=== PATIENT | male | born 1960 | race Caucasian/White ===

== ENCOUNTER 2018-09-21 07:05 | Day surgery (SDC) | payer BC ==
[~2018-09-21] VITALS: Ht 188 cm; Wt 81.7 kg
--- NOTE | ~2018-09-21 | OR ---
[facility] [address] [place], [place] [address] Draft DATE OF OPERATION: 09/21/2018 SURGEON: Carmen Maurice MD PREOPERATIVE DIAGNOSES: 1. Bladder mass. 2. History of bladder cancer, with evidence of tumor recurrence on recent cystoscopy. POSTOPERATIVE DIAGNOSES: 1. Bladder mass. 2. History of bladder cancer, with evidence of tumor recurrence on recent cystoscopy. NAMES OF PROCEDURES: 1. Urethral dilation using Jagjit sounds from 16-Paraguayan to 28-Paraguayan. 2. Transurethral resection of bladder tumor-small. 3. Intravesical instillation of mitomycin. ANESTHESIA: Spinal. ESTIMATED BLOOD LOSS: Minimal. COMPLICATIONS: None. SPECIMENS: Fragments of bladder tumor sent to pathology for evaluation. DRAINS: A 20-Paraguayan two way Mendez catheter, capped and taped to the patient's abdomen. INDICATIONS FOR PROCEDURE: Mr. Sunshine is a very pleasant 58-year-old gentleman with a history of low-grade bladder cancer, initially diagnosed in 2000. He recently presented to me for evaluation of intermittent bouts of gross hematuria, along with recurrent UTIs. A diagnostic cystoscopy was performed, which revealed moderate trilobar BPH, along with 1 cm plaque like papillary mass located over the area of previous resection on the right lateral wall of the bladder. I had a long discussion regarding the patient's obvious evidence of tumor recurrence and that he will now need to return to q.3 months surveillance PATIENT NAME: YAMILET SUNSHINE OPERATIVE REPORT DATE OF : 56 REPORT #: [id number] PHYSICIAN: CARMEN MAURICE MD PCP: CHEL BARRY MD REPORT IS CONFIDENTIAL AND NOT TO BE RELEASED WITHOUT AUTHORIZATION [facility] [address], [place] [address] Draft cystoscopies for at least one year. I also highly recommended at the time they undergo a transurethral resection of the prostate for definitive management of his BPH with lower urinary tract symptoms. The patient has agreed to undergo TURBT for resection of his bladder tumor, however, he is currently not interested in undergoing transurethral resection of the prostate. He would prefer to continue his current medical management in the form of Flomax p.o. b.i.d. as he says this medicine has resulted in improvement in his lower urinary tract symptoms. FINDINGS: 1. On cystoscopy, there is a diffuse plaque like papillary mass located over the previous resection scar in the superior aspect of the right lateral wall of the bladder. A good deal of the tumor does spread towards the dome as well. There was no obvious evidence of any other tumors on the remainder of the cystoscopy. Bilateral ureteral orifices are in their normal anatomic location and they are not involved with tumor. 2. Ureteroscopy reveals moderate trilobar hypertrophy with presence of a medium median bar. There is no evidence of any urethral stricture or stenosis. 3. The plaque-like tumor was resected with a bipolar electrocautery with only a minor amount of difficulty due to the presence of the tumor on the dome as well. I resected all visible papillary tumor in this area. Then I used a bipolar button to cauterize the tumor bed. Approximately 40 mg in 25 mL of mitomycin was instilled into the patient's bladder at the end of the procedure. He will turn to 20 minutes for a total of 80 minutes to complete the mitomycin chemotherapy. DESCRIPTION OF PROCEDURE: After informed consent was obtained, the patient was taken back to the operating room. He was transferred from the [facility] to the operating room table, where spinal anesthesia was induced. He was then placed in the dorsal lithotomy position and his genitalia was prepped and draped in a standard sterile fashion. His urethra was then dilated using Jagjit sounds. Please see above findings. Using a 30-degree lens on a 26-Paraguayan introducer, a rigid cystoscope was inserted through the urethra and into his bladder under direct visualization. Panendoscopic views of the bladder were then obtained. Please see above findings. The visual obturator was then switched out for the resectoscope and then I began resecting the papillary mass located on the right lateral wall of the bladder. I resected all visible tissue involved with tumor. I did require the assistance of a nurse to press down on the dome of the bladder to help me reach the areas in the dome for adequate resection. Once the entire tumor was resected I then used a bipolar electrode to cauterize the tumor bed. This was performed without difficulty. The patient's bladder was then irrigated using a Nicole syringe and all the bladder tumor fragments were placed in a specimen cup to be sent to pathology for evaluation. I then inserted a 20-Paraguayan 2-way Mendez catheter into the patient's bladder and then allowed it to drain via gravity. I then instilled the mitomycin chemotherapy PATIENT NAME: YAMILET SUNSHINE OPERATIVE REPORT DATE OF : 56 REPORT #: [id number] PHYSICIAN: CARMEN MAURICE MD PCP: CHEL BARRY MD REPORT IS CONFIDENTIAL AND NOT TO BE RELEASED WITHOUT AUTHORIZATION [facility] [address] [place] [id number] Draft through the catheter into the patient's bladder. I capped the Mendez and then secured the catheter to the patient's abdomen. The procedure was then terminated. The patient tolerated the procedure well without any complication. He will now be transferred to the postanesthesia care unit in stable condition. DISPOSITION: The patient will be discharged to home with a Mendez catheter in place later today. He will remove his indwelling Mendez catheter using a provided syringe in approximately 5 days. I discussed the details of today's procedure with the patient's and answered all of her questions. He will be sent home today with Augmentin 875 p.o. b.i.d. for seven days, along with oxybutynin as needed for spasms and Percocet 5/325 dispense #20 as needed for pain. He will be scheduled to return to clinic in five weeks to discuss his pathology results. MD CLEMENTINA Robin/ROBERT /[id number] Copies: ~ PATIENT NAME: YAMILET SUNSHINE OPERATIVE REPORT DATE OF : 56 REPORT #: [id number] PHYSICIAN: CARMEN MAURICE MD PCP: CHEL BARRY MD REPORT IS CONFIDENTIAL AND NOT TO BE RELEASED WITHOUT AUTHORIZATION
[~2018-09-21 07:05] MED LIST: BENZONATATE200 MG PO; TAMSULOSIN HCL0.4 MG PO
--- NOTE | 2018-09-21 10:08 | NUR ---
09/21/18 Estefani Coburn 1001 PT TO PACU AWAKE AND ALERT DENIES PAIN AND NAUSEA, SPINAL AT T-10 BREATH REG REQUIRE NO 02 TO MAINTAIN STAT
--- NOTE | 2018-09-21 10:42 | NUR ---
PT ARRIVES TO DS RM 4 FROM PACU AWAKE AND ALERT. PT ON RA, RESP EVEN AND UNLABORED. PT DENIES ANY N/V OR PAIN. PT SUPINE ON ARRIVAL AND POSITIONED TO RIGHT SIDE AT 0937. PT SPOUSE AT BEDSIDE. PT PROVIDED ICED WATER AND CRACKERS. WILL MOVE PT TO PRONE POSITION AT 0957. CALL LIGHT WITHIN REACH.
--- NOTE | 2018-09-21 11:42 | NUR ---
PT REPOSITIONED TO SUPINE WITH HOB AT 90 DEGREES. LUNA CATHETER EMPTIED OF 200 MLS PINK FLUID. PT OFFERED LEG BAG FOR LUNA CATHETER AND PT REQUESTS TO HAVE LUNA CAPPED. PT PROVIDED COFFEE AND APPLESAUCE. PT IS ABLE TO MOVE LEFT LEG COMPLETELY, BUT UNABLE TO MOVE RIGHT TOES. PT DENIES PAIN OR N/V. CALL LIGHT WITHIN REACH.
--- NOTE | 2018-09-21 12:55 | NUR ---
DR. MAURICE IN PT ROOM DISCUSSING NEED FOR CATHETER TO DRAIN TO GRAVITY. LUNA CATHETER EMPTIED OF 75MLS CONCENTRATED YELLOW URINE. LEG BAG APPLIED AND PT EDUCATED ON USE. PT ALSO PROVIDED GRAVITY BAG FOR WHEN AT HOME AND EVENINGS. PT SITS AT SIDE OF BED, DENIES DIZZINESS OR NAUSEA. PT UP AMBULATING AROUND UNIT, STEADY GAIT. PT BACK IN ROOM AND GETTING DRESSING WITH HELP OF SPOUSE.
--- NOTE | 2018-09-21 13:30 | NUR ---
PT ALERT, ORIENTED AND SUPPORTED BY HIS ROMEO. BOTH SEEM INFORMED, HAD FEW QUESTIONS. PT REQUESTED PRAYER. WILL FOLLOW NEEDED
--- NOTE | 2018-09-21 14:32 | NUR ---
[id number]: DC INSTRUCTIONS PRESENTED TO PT AND SPOUSE, ALL QUESTIONS ANSWERED. SCRIPT GIVEN TO PT. TWO 20 MLS SYRINGES AND LUNA GRAVITY BAG GIVEN TO PT. PT REQUESTS TO AMBULATE FROM DS RM 4 TO CAR AT ENTRANCE OF HOSPITAL. PT GAIT STEADY.
== END 2018-09-21 13:15 | disposition home or self-care (01) ==
LOC: OPS 07:05 → DS 07:05 → OPS 08:45 → DS 08:45 → OPS 13:15
PROVIDERS: Urology
PROC: 0TBB8ZZ Excision of Bladder, Via Natural or Artificial Opening Endoscopic (ICD-10-PCS; principal; 2018-09-21 08:45)
DX: C67.2 Malignant neoplasm of lateral wall of bladder (principal); N39.0 Urinary tract infection, site not specified; Z88.8 Allergy status to other drugs, medicaments and biological substances; Z79.899 Other long term (current) drug therapy; Z87.891 Personal history of nicotine dependence
CPT/HCPCS: 00910; 51702; J0696; J1100; J2250; J2405; J3010; J7120; J9280

== ENCOUNTER 2018-11-30 05:45 | Day surgery (SDC) | payer BC ==
[~2018-11-30] VITALS: Ht 188 cm; Wt 79.4 kg
--- NOTE | ~2018-11-30 | OR ---
[facility] [address] [place], [place] [address] Draft DATE OF OPERATION: 11/30/2018 SURGEON: Carmen Maurice MD PREOPERATIVE DIAGNOSES: 1. High-grade bladder cancer. 2. Possible detrusor muscle involvement based on recent pathology from initial tumor resection. POSTOPERATIVE DIAGNOSES: 1. High-grade bladder cancer. 2. Possible detrusor muscle involvement based on recent pathology from initial tumor resection. 3. 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 NAMES OF PROCEDURES: 1. Diagnostic cystoscopy. 2. Transurethral resection of bladder tumor-small. 3. Intravesical instillation of mitomycin, 40 mg in 20 mL. ANESTHESIA: Spinal. ESTIMATED BLOOD LOSS: Minimal. COMPLICATIONS: None. SPECIMENS: Fragments of the previously resected tumor base were sent to pathology for evaluation. DRAINS: A 22-Kuwaiti two-way Mendez catheter, capped and taped to the patient's belly. INDICATIONS FOR PROCEDURE: Mr. Sunshine is a very pleasant 58-year-old gentleman with a longstanding history of bladder cancer, initially diagnosed as low-grade urothelial carcinoma around 2000. He had undergone multiple cystoscopies and at one point in time was considered clear of his disease. He recently presented to me with intermittent bouts of gross hematuria and PATIENT NAME: YAMILET SUNSHINE OPERATIVE REPORT DATE OF : 56 REPORT #: [id number] PHYSICIAN: CARMEN MAURICE MD PCP: CHEL BARRY MD REPORT IS CONFIDENTIAL AND NOT TO BE RELEASED WITHOUT AUTHORIZATION [facility] [address] [place] [place] [address] Draft underwent a diagnostic cystoscopy, which revealed recurrence of his disease. The mass was approximately 1 cm in size and papillary in appearance, located at the junction of the dome and right lateral wall of the bladder. He underwent initial TURBT approximately six or seven weeks ago without complication. The pathology at that time did reveal high-grade disease with questionable involvement of the detrusor muscle; however, the pathologist could not be sure based on tangential cutting of the specimen. The patient presents today to undergo re-staging TURBT. OPERATIVE FINDINGS: 1. On cystoscopy, there was an approximately 1.5 cm area of previously resected tumor at the junction of the right lateral wall and dome of the bladder. I see no obvious evidence of regrowth of tumor. This area appears to be healing nicely with some erythema at the edges, but otherwise within normal limits given his recent resection. There were no other suspicious lesions or erythema in any other part of the bladder. Bilateral ureteral orifices are in their normal anatomic location effluxing clear urine. 2. The 1.5 cm base of the previously resected tumor was resected down to the level of the perivesical fat in some areas. I did my best to get as deep of resection as possible given the ambiguity of the patient's most recent pathology report. I was able to resect these areas without any obvious perforation of the bladder. 3. The tumor base was then cauterized thoroughly using a bipolar button. The tissue fragments were then collected via the cystoscope and sent to the lab for pathological evaluation. 4. A 22-Kuwaiti catheter was inserted into the patient's bladder. The patient's bladder was then filled with 40 mg in 20 mL of mitomycin via the indwelling catheter. The catheter was then capped and then secured to his abdomen. DESCRIPTION OF PROCEDURE: After informed consent was obtained, the patient was taken back to the operating room. He was transferred from the [facility] to the operating room table, where spinal anesthesia was induced. He was placed in the dorsal lithotomy position and his genitalia prepped and draped in a standard sterile fashion. The patient's urethra was then dilated from 18-Kuwaiti to 28-Kuwaiti with some difficulty. I did notice there was an area of mild stenosis in the pendulous urethra; however, I was able to dilate this using [place] sounds with only a mild amount of difficulty. After dilation of the urethra using [place] sounds, I was able to pass a 26-Kuwaiti sheath using the visual obturator into the patient's bladder. I then performed a diagnostic cystoscopy. Please see above findings. I removed the visual obturator and inserted the resectoscope. I then began resecting the base of the previous bladder tumor. This was performed using a 24-Kuwaiti bipolar loop without difficulty. Once I was satisfied with all the specimen that I had obtained, I irrigated these chips from the patient's bladder using the cystoscope. I then reinserted the resectoscope and cauterized the base of the previous bladder tumor using a bipolar button. This was performed without difficulty. Once I was satisfied PATIENT NAME: YAMILET SUNSHINE OPERATIVE REPORT DATE OF : 56 REPORT #: [id number] PHYSICIAN: CARMEN MAURICE MD PCP: CHEL BARRY MD REPORT IS CONFIDENTIAL AND NOT TO BE RELEASED WITHOUT AUTHORIZATION [address] [address] Draft that hemostasis had been achieved and was maintained without any risk of rebleed, I removed the resectoscope and irrigated the patient's bladder thoroughly using a Nicole syringe. A 22-Kuwaiti Mendez catheter was inserted into the patient's bladder with the help of a guidewire. I then instilled 40 mg in 20 mL of mitomycin chemotherapy into the patient's bladder. The tube was then capped and then attached to the patient's abdomen. The procedure was then terminated. The patient tolerated the procedure well without any complication. He will now be transferred to the postanesthesia care unit in stable condition. DISPOSITION: I did discuss the details of today's procedure with both the patient and his and answered all of his questions. He will be sent home today with his Mendez catheter to gravity drainage. I did say that it would be okay for him to cap his catheter during waking hours and empty his catheter on a strict q.4 hour schedule if need be. He was given a syringe today to remove his own catheter this on postprocedure day #3. He has done this before, so he understands how to do this. He will be scheduled to return to clinic in around six weeks for urine check and to begin scheduling his BCG induction treatment. He will be sent home today with oral antibiotics and suppositories as needed for bladder spasms. MD CLEMENTINA Robin/ROBERT /[id number] Copies: ~ PATIENT NAME: YAMILET SUNSHINE OPERATIVE REPORT DATE OF : 56 REPORT #: [id number] PHYSICIAN: CARMEN MAURICE MD PCP: CHEL BARRY MD REPORT IS CONFIDENTIAL AND NOT TO BE RELEASED WITHOUT AUTHORIZATION
--- NOTE | 2018-11-30 08:53 | NUR ---
11/30/18 0853 Day Juan 0838 PT ARRIVED IN PACU AWAKE WITH NO C/O'S. CATHETER PLUGGED FROM SURGERY. 0842 PT LAYING FLAT AND 20 MINUTES ON BACK STARTED. OXYGEN REMOVED. SATS 96% ON RA. 0845 PT TALKING WITH AND ALL QUESTIONS ANSWERED.
--- NOTE | 2018-11-30 09:20 | NUR ---
PT ARRIVES TO DS RM 4 FROM PACU AWAKE, A&O X3. PT RESP EVEN AND UNLABORED, SATS ABOVE 94% ON RA. PT DENIES PAIN, RATES 2/10 AND COMFORTABLE. PT DENIES NAUSEA. PT IS ON LEFT SIDE OF MITOMYCIN ROTATIONS, PT TO MOVE POSITION AT 0922. PT SPOUSE AT BEDSIDE, CALL LIGHT WITHIN REACH. PT HAS GLASSES IN PLACE.
--- NOTE | 2018-11-30 10:17 | NUR ---
[id number]: PT ROTATES FROM LEFT SIDE TO STOMACH. [id number]: PT ROTATES FROM STOMACH TO RIGHT SIDE. 1002: PT SITS SUPINE, HOB 90 DEGREES. CATHETER UNTAPED FROM STOMACH AND EMPTIED OF APPORXIMATELY 100 MLS DARK TEA COLORED URINE. LUNA BAG PLACED TO DRAIN TO GRAVITY. SCANT AMOUNT OF BLOOD NEAR MEATUS WITH DRAINING CATHETER. PT TOLERATES WELL. PROCEDURE COMPLETED WITH PROPER CHEMO PPE IN PLACE AND DISPOSED OF IN YELLOW CHEMO CONTAINER IN PT RM. CALL LIGHT WITHIN REACH, SPOUSE AT BEDSIDE.
[2018-11-30] MEDS ORDERED: LEVAQUIN500 MG PO (10:29)
--- NOTE | 2018-11-30 10:33 | NUR ---
PT PROVIDED COFFEE PER REQUEST AND DIETARY CALLED FOR YOUGURT.
--- NOTE | 2018-11-30 11:55 | NUR ---
[id number]: PT LUNA BAG EMPTIED OF 125 MLS PINK URINE. GRAVITY BAG CHANGED TO LEG BAG PER PT REQUEST. PT SPINAL RESOLVED AT THIS TIME. PT AMBULATES AROUND DS UNIT WITH RN ASSIST WITH STEADY GAIT AND STATES, "I FEEL FINE." PT BACK TO RM AND DRESSES SELF WITH SPOUSE IN RM. DC INSTRUCTIONS GIVEN IN PRESENCE OF PT AND SPOUSE, ALL QUESTIONS ADDRESSED. PT DC'S AMBULATORY WITH SPOUSE AND SILAS DE TO PERSONAL VEHICLE AT HOSPITAL ENTRANCE.
--- NOTE | 2018-11-30 13:47 | NUR ---
PT ALERT, ORIENTED AND SUPPORTED BY ROMEO. SHE WILL REMAIN IN DURING SURGERY TO WORK ON COMPUTER. PT HAS HAD SIMILIAR PROCEDURE, FEW QUESTIONS. APPLIED RESEARCHER IN-EXTENDED BLESSING. WILL FOLLOW NEEDED
== END 2018-11-30 11:50 | disposition home or self-care (01) ==
LOC: DS 05:45 → OPS 05:45 → DS 06:45 → OPS 11:50
PROVIDERS: Urology
PROC: 0TBB8ZZ Excision of Bladder, Via Natural or Artificial Opening Endoscopic (ICD-10-PCS; principal; 2018-11-30 06:45)
DX: N30.20 Other chronic cystitis without hematuria (principal); N32.89 Other specified disorders of bladder; N40.0 Benign prostatic hyperplasia without lower urinary tract symptoms; M47.814 Spondylosis without myelopathy or radiculopathy, thoracic region; F12.90 Cannabis use, unspecified, uncomplicated; N35.919 Unspecified urethral stricture, male, unspecified site; Z88.8 Allergy status to other drugs, medicaments and biological substances; Z79.899 Other long term (current) drug therapy; Z87.891 Personal history of nicotine dependence
CPT/HCPCS: 00912; J0461; J0696; J1100; J1885; J2250; J2405; J2704; J2765; J3010; J7120; J9280

== ENCOUNTER 2020-11-13 09:25 | Day surgery (SDC) | payer BC ==
[~2020-11-13] VITALS: Ht 188 cm; Wt 84.1 kg
[~2020-11-13 09:25] MED LIST changes: +DESONIDE15 G1 TOP; +LEVAQUIN500 MG PO; +MULTIPLE VITAM1 EAC2 PO
[2020-11-13] MEDS ORDERED: OXYCODONE HCL5 MG PO (14:21)
[2020-11-13] MEDS ORDERED: LEVOFLOXACIN500 MG PO (14:21)
[2020-11-13] MEDS ORDERED: PYRIDIUM200 MG PO (14:22)
--- NOTE | 2020-11-20 08:48 | OR ---
[facility] [address] [place], [place] [address] Signed DATE OF OPERATION: 11/13/2020 SURGEON: Carmen Maurice MD PREOPERATIVE DIAGNOSIS: History of high-grade superficial bladder cancer with multiple recurrences. POSTOPERATIVE DIAGNOSIS: History of high-grade superficial bladder cancer with multiple recurrences. NAME OF PROCEDURE: Diagnostic cystoscopy with bladder biopsy. ANESTHESIA: General. ESTIMATED BLOOD LOSS: Minimal. COMPLICATIONS: None. SPECIMENS: Multiple bites of bladder lesion sent to pathology for both acid-fast staining and pathological evaluation. DRAINS: None. COMPLICATIONS: None. INDICATIONS FOR PROCEDURE: Mr. Nash is a very pleasant 60-year-old gentleman, who is well known to me. He has a longstanding history of bladder cancer that was initially diagnosed in the early 1999s and he has more recently been treated for multiple recurrences. His disease began as low-grade but has since progressed to high-grade disease. TURBT in the recent past revealed no evidence of detrusor muscle invasion and so the patient has been undergoing BCG therapy. He underwent induction therapy followed by maintenance therapy a few months ago. The 2nd round of BCG was very difficult for him to tolerate and resulted in Electronically Signed By: CARMEN MAURICE MD 11/20/20 0848 PATIENT NAME: YAMILET NASH OPERATIVE REPORT DATE OF : 56 REPORT #: [id number] PHYSICIAN: CARMEN MAURICE MD PCP: CHEL BARRY MD REPORT IS CONFIDENTIAL AND NOT TO BE RELEASED WITHOUT AUTHORIZATION [facility] [address] [place], [place] [address] Signed multiple side effects including dysuria and fevers and chills. Recent surveillance cystoscopy revealed an erythematous lesion measuring around 2 cm on the dome of the bladder. He presents today to undergo cystoscopy with bladder biopsy to evaluate for possible recurrence of his disease versus BCG granuloma. OPERATIVE FINDINGS: 1. On cystoscopy, he has diffuse grade 4 bladder wall trabeculation, along with a mostly pale bladder wall mucosa. There is a 2 cm quarter-sized well-circumscribed erythematous lesion on the dome of the bladder near the junction of the right lateral wall. This lesion was biopsied multiple times using cold cup forceps. The biopsied area was then cauterized using a Bugbee monopolar electrocautery. 2. Ureteroscopy again revealed prostate enlargement with lateral lobe hypertrophy as well as a small median lobe. There was no significant hemorrhage from the prostatic urethra during today's procedure. 3. A digital rectal examination was performed, which revealed a 40 g prostate that is soft and smooth and symmetric with no focal nodules. DESCRIPTION OF PROCEDURE: After informed consent was obtained, the patient was taken back to the operating room. He was transferred from the [facility] to the operating room table, where general anesthesia was induced. He was placed in dorsal lithotomy position and his genitalia prepped and draped in a standard sterile fashion. Using a 30-degree lens on a 22.5-Korean introducer, rigid cystoscope was inserted through his urethra and into his bladder under direct visualization. Panendoscopic views of the bladder were then obtained. Please see above findings. I turned my attention to the 2 cm lesion located on the dome of the bladder. A cold cup forcep was used to take multiple bites of this lesion. The lesion appeared to be superficial and did come off easily from the bladder wall just with minor amount of manipulation. I was able to retrieve around 4 or 5 bites of small tissue which were placed in a specimen cup to be sent to pathology. There was some minor hemorrhage associated with the biopsy that was then cauterized using monopolar Bugbee cautery. Once hemostasis was achieved, the Bugbee was removed and the patient's bladder was then drained. Repeat cystoscopy revealed no evidence of any remaining bleeding from the biopsy site. The patient's bladder was then drained and the cystoscope was removed. The procedure was then terminated. The patient tolerated the procedure well without any complication. He will now be transferred to the postanesthesia care unit in stable condition. DISPOSITION: I discussed the details of today's procedure with the patient's and answered all of her questions. I told her that I will contact the patient with his pathology results as soon as they are available to me. Otherwise, he will be discharged to home later today once he awakes from general anesthetic. He was sent home with oxycodone 5 mg one tablet Electronically Signed By: CARMEN MAURICE MD 11/20/20 0848 PATIENT NAME: YAMILET NASH OPERATIVE REPORT DATE OF : 56 REPORT #: [id number] PHYSICIAN: CARMEN MAURICE MD PCP: CHEL BARRY MD REPORT IS CONFIDENTIAL AND NOT TO BE RELEASED WITHOUT AUTHORIZATION [facility] [address] [place] [id number] Signed p.o. q.6 hours p.r.n. pain, dispense #20, along with an oral antibiotic. Depending upon the results of the biopsy, he will either continue maintenance BCG or potentially be referred to Oncology to be considered for possible radical cystectomy. Carmen Maurice MD AR/MODL /[id number] Copies: ~ Electronically Signed By: CARMEN MAURICE MD 11/20/20 0848 PATIENT NAME: YAMILET NASH OPERATIVE REPORT DATE OF : 56 REPORT #: [id number] PHYSICIAN: CARMEN MAURICE MD PCP: CHEL BARRY MD REPORT IS CONFIDENTIAL AND NOT TO BE RELEASED WITHOUT AUTHORIZATION
--- NOTE | 2020-11-22 16:29 | PATH ---
[facility] [address] [place], [place] [address] Signed SPECIMEN(S): A BLADDER LESION SPECIMEN SOURCE: A. BLADDER LESION CLINICAL HISTORY: High grade urothelial carcinoma with multiple recurrences status post BCG therapy now presenting with 2 cm well-cricumscribed erythematous lesion on the dome of the bladder suspicious for tumor recurrence. Cystoscopy with bladder biopsy. Pre/Post: BPH, history of bladder cancer. FINAL PATHOLOGIC DIAGNOSIS: Bladder lesion, biopsy: - Reactive myofibroblastic proliferation. - Focal urothelium with reactive changes. - No evidence of malignancy. - See comment. COMMENT: Sections demonstrate a suburothelial bland spindle cell proliferation within fibrous tissue admixed with scattered chronic inflammatory cells. Immunohistochemical stains (with appropriately staining controls) were performed. The spindle cells are positive for SMA but negative for CK5/6, p53, CK8, HMWCK, and ALK. CD68 highlights rare stromal histiocytes, but negative for granulomas. The features are favored to represent reactive changes likely secondary to treatment and prior procedures. Given the lesion is 2 cm in size, if clinical concern for a neoplasm is high, additional sampling should be considered. AFB and Bacilio stains (with appropriately staining controls) were performed are negative for acid fast bacilli. As part of [facility] Quality Improvement Program, this case was reviewed by another member of our pathology staff. NAL:cml:[id number] MICROSCOPIC EXAMINATION: Histologic sections of all submitted blocks are examined by light microscopy. These findings, together with the gross examination, support the pathologic diagnosis. PATIENT NAME: YAMILET NASH PATHOLOGY DATE OF : 56 REPORT #: [id number] PHYSICIAN: JANINE DUBON PCP: CHEL BARRY MD REPORT IS CONFIDENTIAL AND NOT TO BE RELEASED WITHOUT AUTHORIZATION [facility] [address] [place], [place] [address] Signed GROSS DESCRIPTION: One specimens are received in two containers, labeled "WA." A1. The specimen, labeled "WA, (A1)," and designated on the requisition "bladder biopsy lesion," is received in formalin and consists of four fragments of pink-mckinley to hemorrhagic soft tissue (0.6 x 0.3 x 0.2 cm in aggregate). The specimen is submitted entirely in cassette (A1). A2. The specimen, labeled "WA, (A2), added formalin at 3:05 PM," is received fresh and placed in formalin in formalin and consists of two fragments of white-mckinley soft tissue (0.7 x 0.7 x 0.2 cm in aggregate). The specimen is submitted entirely in cassette (A2). AC (under the direct supervision of a pathologist) The Gross Description was prepared using a voice recognition system. The report was reviewed for accuracy; however, sound-alike word errors, addition and/or deletions may occur. If there is any question about this report, please contact Client Services. ADDITIONAL NOTES: Immunohistochemical and/or in situ hybridization studies were performed on this case with the appropriate positive controls that react as expected. This test was developed and its performance characteristics determined by [facility]. It has not been cleared or approved by the U.S. Food and Drug Administration. The FDA has determined that such clearance or approval is not necessary. This test is used for clinical purposes. It should not be regarded as investigational or for research. [facility] is certified under the Clinical Laboratory Improvement Amendments of 1988 (CLIA) as qualified to perform high complexity clinical laboratory testing. This assay has not been validated for specimens that have been decalcified. PERFORMING LABORATORY: The technical component was performed by [facility], [address] [place] [id number] (Manager Lvn: Patricia Bearden MD; CLIA# [id number]). [facility] interpretation [facility] performed by [facility], [address] [place], [place] [address] (CLIA# [id number]). Diagnostician: Karime Young MD Pathologist Electronically Signed 11/22/2020 PATIENT NAME: YAMILET NASH PATHOLOGY DATE OF : 56 REPORT #: [id number] PHYSICIAN: JANINE PATHOLOGY PCP: CHEL BARRY MD REPORT IS CONFIDENTIAL AND NOT TO BE RELEASED WITHOUT AUTHORIZATION [facility] [address] [facility] [place], [place] [address] Signed Copies: ~ PATIENT NAME: YAMILET NASH PATHOLOGY DATE OF : 56 REPORT #: [id number] PHYSICIAN: JANINE DUBON PCP: CHEL BARRY MD REPORT IS CONFIDENTIAL AND NOT TO BE RELEASED WITHOUT AUTHORIZATION
== END 2020-11-13 16:10 | disposition home or self-care (01) ==
LOC: OPS 09:25 → DS 09:25 → OPS 10:10 → DS 10:10 → OPS 16:10
PROVIDERS: ATTEND Urology
PROC: 0TBB8ZX Excision of Bladder, Via Natural or Artificial Opening Endoscopic, Diagnostic (ICD-10-PCS; principal; 2020-11-13 10:10)
DX: N32.89 Other specified disorders of bladder (principal); N40.1 Benign prostatic hyperplasia with lower urinary tract symptoms; R35.1 Nocturia; Z87.440 Personal history of urinary (tract) infections; Z85.51 Personal history of malignant neoplasm of bladder; Z87.891 Personal history of nicotine dependence; Z88.7 Allergy status to serum and vaccine; Z91.09 Other allergy status, other than to drugs and biological substances
CPT/HCPCS: 00910; 74420; J0690; J1885; J2001; J2250; J2405; J2704; J7121; Q9967